=== PATIENT | male | born 1945 | race Caucasian/White ===

== ENCOUNTER → 2020-04-25 | Outpatient (CLI) | payer BC, OTHER ==
[~2020-04-25] MED LIST: BENADRYL25 MG PO; COLACE 100 MG100 MG PO; DECONGESTANT30 MG PO; GEMFIBROZIL 60600 MG PO; MULTIVITAMIN W1 EAC5 PO; NAPROXEN 500MG500 M1 PO; NEXIUM40 MG PO; NORCO 10-325 T1 EACH PO; NORCO 5-325 TA1 EACH PO; ORAMORPH SR15 M1 PO; POTASSIUM GLUCO99 MG PO; ROBAXIN 750 MG750 M1 PO; UNISOM50 MG PO; VALTREX 500 MG500 MG PO; [UNRECOGNIZED DRUG - OTHER]
== END ==
LOC: SJCVCIMAG 11:58
PROVIDERS: ATTEND Internal Medicine Cardiovascular Disease
DX: I34.0 Nonrheumatic mitral (valve) insufficiency (principal); I48.91 Unspecified atrial fibrillation

== ENCOUNTER → 2020-04-26 | Outpatient (CLI) | payer BC, OTHER | LOC: SJCVCIMAG 14:25 | PROVIDERS: ATTEND Internal Medicine Cardiovascular Disease | DX: Z01.818 Encounter for other preprocedural examination (principal); I48.91 Unspecified atrial fibrillation; I49.3 Ventricular premature depolarization; E78.5 Hyperlipidemia, unspecified; I10 Essential (primary) hypertension; E66.9 Obesity, unspecified; Z87.891 Personal history of nicotine dependence ==